=== PATIENT | male | born 1975 | race Caucasian/White ===

== ENCOUNTER 2020-03-24 11:44 | Emergency (ER) | payer SELFPAY ==
[2020-03-24 11:50] VITALS: BP 140/60
--- NOTE | 2020-03-24 12:14 | ER Document Report ---
HPI - HPI Time Seen by Provider: 03/24/20 12:04 Pain Level: Denies Context: Patient is a 44-year-old male presents emergency department for a rash all over his body. Patient states that he ends up getting a cut and sometimes develops purulent drainage from the area. Patient states that he has had this problem for the past year. He went to his primary care provider and they tested him for diabetes, which he does not have. Denies any fever, body aches, or chills. - ROS Systems Reviewed and Negative: Yes All other systems reviewed and negative - CONSTITUTIONAL Constitutional: DENIES: Fever, Chills - CARDIOVASCULAR Cardiovascular: DENIES: Chest pain - RESPIRATORY Respiratory: DENIES: Trouble Breathing, Coughing - GASTROINTESTINAL Gastrointestinal: DENIES: Abdominal Pain, Nausea, Patient vomiting - MUSCULOSKELETAL Musculoskeletal: DENIES: Extremity pain, Back Pain - DERM Skin Color: Normal Skin Problems: Rash, Pustule Past Medical History - General Information source: Patient - Social History Smoking Status: Former Smoker Drug Abuse: Marijuana Family History: Reviewed & Not Pertinent Vertical Provider Document - CONSTITUTIONAL Agree With Documented VS: Yes Exam Limitations: No Limitations General Appearance: No Apparent Distress - HEENT HEENT: Atraumatic, Normocephalic, PERRLA - RESPIRATORY Respiratory: No Respiratory Distress - CARDIOVASCULAR Cardiovascular: Regular Rate, Regular Rhythm Pulses: Normal: Radial - MUSCULOSKELETAL/EXTREMETIES Musculoskeletal/Extremeties: FROM - NEURO Level of Consciousness: Awake, Alert, Appropriate - DERM Integumentary: Warm, Dry, Rash - Multiple scabs to entire body with surrounding erythema. Course - Re-evaluation Re-evalutation: 03/24/20 12:14 Patient is nonseptic in appearance. He does have some cellulitis noted around some of his scabs. Will place patient on Bactrim and Keflex. Advised him to follow-up with his primary care provider and dermatology in regards to this visit. Vital signs stable. No distress noted. Follow-up precautions were given. Verbal discharge instructions were given to the patient. They verbalized understanding. They are stable for discharge. - Vital Signs Vital signs: Temp Pulse Resp BP Pulse Ox 98.0 F 96 16 140/60 H 99 03/24/20 11:49 03/24/20 11:49 03/24/20 11:49 03/24/20 11:49 03/24/20 11:49 - Laboratory Results Critical Laboratory Results Reviewed: No Critical Results - Radiology Results Critical Radiology Results Reviewed: No Critical Results Discharge - Discharge Clinical Impression: Cellulitis Qualifiers: Site of cellulitis: unspecified site Qualified Code(s): L03.90 - Cellulitis, unspecified Condition: Stable Disposition: HOME, SELF-CARE Additional Instructions: You were seen today in the emergency department for a rash on her skin. You are being started on antibiotics. Take all your antibiotics as prescribed. Have your primary care provider refer you to dermatology. Prescriptions: Sulfamethoxazole/Trimethoprim [Bactrim Ds Tablet] 1 each PO BID 7 Days #14 tablet Vit E Acet/Gly/Dimeth/Water [Cetaphil Moisturizing Lotion] 473 ml TP DAILY #1 lotion Cephalexin Monohydrate [Keflex 500 mg Capsule] 500 mg PO Q6H 5 Days #28 capsule Referrals: LOCALMD,NO [NO LOCAL MD] - Follow up as needed
== END 2020-03-24 12:42 | disposition home or self-care (01) ==
LOC: ER 11:44
DX: L03.90 Cellulitis, unspecified (principal); R23.4 Changes in skin texture; F12.10 Cannabis abuse, uncomplicated; Z87.891 Personal history of nicotine dependence
CPT/HCPCS: 99283